=== PATIENT | female | born 1965 | race Caucasian/White ===

== ENCOUNTER 2024-02-23 13:45 | Outpatient (AMB) | payer BC, SELFPAY ==
--- NOTE | 2024-02-23 13:52 | PD.GSCLVISIT ---
Vital Signs - [facility] 02/23/24 13:54 Height 1.63 m Height Method Stated Weight 104.411 kg Weight Measurement Method Standing Scale BMI 39.4 BP 119/80 Blood Pressure Source Automatic Cuff Blood Pressure Location Right Upper Arm Position Sitting Respiration 19 Pulse 62 Pulse Source Monitor Temp 97.3 F Temp Source Temporal Artery Scan Pulse Oximetry (%) 96 Oxygen Delivery Method Room Air Med/Allergies Allergies & Medications Allergies Sulfa (Sulfonamide Antibiotics) Allergy (Verified 02/23/24 13:54) Medication Reconciliation No Known Home Medications 02/23/24 [History Confirmed 02/23/24] MA Intake Visit Data Collection New Patient or Established: New Patient (never been to [facility]) Seen by Clinical Staff ONLY (RN/MA): No Reason for Visit:: HERNIA Pain Present Currently: No Supervisor [employer] Required: No PCP or OBGYN visit in last 3 months: Yes Hx Now: No Do You Feel Safe at Home: Yes Authorities Contacted: N/A Smoking Status Smoking Status: Never smoker Immunization / Flu Flu Vaccine in the Last 12 Months: Yes Flu Vaccine Exclusion Criteria: Already Received Past Medical History Social History SMOKING STATUS: Smoking status: Never smoker HPI HPI Narrative 59 y/o F presenting with noticeable hernia for the past 6 months. Per patient she was seen in [facility] ER in [place], and told to follow up for her the current hernia. Pt states that she had previously had hernia repair in 2009, which was removed due to emergency surgery of partial Colon resection and colostomy placement in 2019, when she was taken to the ED for Crohns associated sepsis. She currently has 8/10 cramping pain near the hernia/ colostomy, reports nausea without vomiting and worsening hernia with coughing. Per patient she also has Crohn associated hemorrhoids and fistula with bilateral Lower quadrant abdominal pain as well as intermittent severe perianal pain. Her last Colonoscopy was 2 years ago and pt was informed she had polyps. Pt is currently taking remicade for a Crohn's flare as well as azathioprine and mesalamine PMH: GERD, Crohn Disease, Diverticulitis, kidney stones, thyroid PSH: Hernia repair, Partial Colectomy, Colostomy 2019, Louis Fundoplication, All: NKDA Meds: Remicade, Levoroxine, Prednisone as needed, FHX: Father: Colon CA, Mother: Thyroid, HTN, Crohn Disease: twin sister, son. 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 ROS Review of Systems Systems Reviewed: All systems reviewed, normal except as documented Constitutional Constitutional: Denies chills, Reports fatigue and Denies headache(s) Eyes Eyes: Denies change in vision and Reports eye discharge ENT Ears, Nose, Mouth, and Throat: Denies dysphagia, Denies headache(s) and Denies vertigo Cardiovascular Cardiovascular: Denies chest pain, Denies chest pain with activity, Denies dyspnea on exertion, Denies irregular heart rhythm and Denies pedal edema Respiratory Respiratory: Denies chest congestion, Denies cough and Denies dyspnea on exertion Gastrointestinal Gastrointestinal: Reports abdominal pain, Reports cramping, Denies dysphagia, Reports early satiety and Denies hematochezia Neurologic Neurologic: Denies headache(s) and Denies vertigo Endocrine Endocrine: Reports fatigue Objective/Exam General General Appearance: alert, cooperative and well groomed Resp Respiratory exam: Absent respiratory distress Abdominal Abdominal exam: Present soft, incision (midline incision with hernia defect at superior aspect) and other (colostomy pink with scattered pseudopolyps, no bleeding) Rectal Rectal exam: Present hemorrhoids (external hemorrhoid. pt declined JOHN) Assessment & Plan Diagnosis / Problem List (1) Crohn's disease: Status: Acute Assessment & Plan: 59F with Crohn's disease s/p partial colectomy with colostomy done in [address] Ruiz, presenting with incisional hernia and perianal pain. I explained to pt that hernia repair is ideally undertaken when BMI is <35, but also because she is hoping to have colostomy reversal it could potentially be performed simultaneously. Pt understands colostomy cannot be reversed until her Crohn's is in remission but would like to follow up with Dr Ruiz if possible. For her perianal pain she likely has a fissure related to her Crohn's; she was unable to tolerate anoscopy but I will prescribe compound cream for symptom management. All questions were answered and pt was agreeable to this plan Office Procedures GNS Level of Care Nursing/Assessment Patient Status: Initial/New Patient Nursing Assessment/Reassesment: Medication Reconciliation, Update PMH in EMR and Vital Signs Coordination of Care: Complex Care and Chronic Disease 1-5, Consent,records obtained, informed consent, 1 Ins Authorization and Staff clarify orders New Patient Charge New Patient Point Assignment: [id number] New Patient Point Charge: BRINELL TESTER Level 3 ([id number]) Patient Portal Questionaires Social History Tobacco History Smoking Status: Never smoker Domestic Abuse History Do You Feel Safe at Home: Yes Review of Systems Report any current symptoms Only answer those that you have currently: General Complaints chills: No fatigue: Yes headache(s): No Eyes change in vision: No eye discharge: Yes Ear, Nose, & Throat difficulty swallowing: No dizzyness: No Heart & Circulation chest pain: No chest pain with activity: No shortness of breath with activity: No irregular heart rhythm: No foot swelling: No Breathing & Lungs chest congestion: No cough: No Digestive System abdominal pain: Yes cramping: Yes feeling full early: Yes bright, red blood in stools: No Past Medical History Past Medical History Have you ever been diagnosed with any of the following:
[2024-02-23 13:54] VITALS: BP 119/80; PULSE 62; RESP 19; TEMP 36.3; O2SAT 96; BMI 39.4
== END 2024-02-23 15:51 | disposition home or self-care (01) ==
PROVIDERS: PCP Family Medicine; Referring Provider Family Medicine; Supervising Provider Surgery; Visit Provider Surgery
DX: K50.90 Crohn's disease, unspecified, without complications (principal); K64.4 Residual hemorrhoidal skin tags
CPT/HCPCS: 99203; G0463

== ENCOUNTER → 2024-04-20 | Outpatient (CLI) | payer BC, SELFPAY ==
--- NOTE | 2024-04-20 08:55 | XR_ITS ---
Examination: Abdomen AP single view Technique: AP portable supine abdomen, single view Exam date and time: April 20, 2024 0906 hrs. Indications: Constipation beginning 6 days ago, Crohn's disease diagnosis Findings: Large amounts of stool in the colon Left colostomy IVC filter Surgical clips upper right and left abdomen Mild small bowel ileus Impression: Large amounts of stool in the right and transverse colon
== END | disposition home or self-care (01) ==
LOC: CDIM 08:45
PROVIDERS: Referring Provider Specialist; Visit Provider Specialist
DX: K59.00 Constipation, unspecified (principal)
CPT/HCPCS: 74018

== ENCOUNTER → 2024-05-31 | Outpatient (CLI) | payer BC, SELFPAY | END | disposition home or self-care (01) | PROVIDERS: PCP Family Medicine; Referring Provider Specialist; Visit Provider Specialist | DX: K50.00 Crohn's disease of small intestine without complications (principal) ==

== ENCOUNTER → 2024-07-06 | Outpatient (CLI) | payer BC, SELFPAY ==
[2024-07-06 08:30] LABS: Misc Send Out* See Sep Rpt
== END | disposition home or self-care (01) ==
LOC: COPL 08:09
PROVIDERS: PCP Family Medicine; Referring Provider Specialist; Visit Provider Specialist
DX: K50.00 Crohn's disease of small intestine without complications (principal)
CPT/HCPCS: 80230; 83520

== ENCOUNTER 2024-09-03 15:38 | Inpatient (IN) | payer BC, SELFPAY ==
[2024-09-03 15:40] VITALS: BMI 37.4
[2024-09-03 15:53] VITALS: BP 125/84; PULSE 70; RESP 18; TEMP 36.4; O2SAT 98; BMI 38.6
--- NOTE | 2024-09-03 16:09 | XR_ITS ---
Examination: CT abdomen and pelvis without contrast. Coronal 3-D reconstructions. Sagittal 2-D reconstructions. Date and time of exam:September 03, 2024 1631 hours INDICATIONS: Crohn's disease diagnosis with abdominal pain and diarrhea beginning one week ago CTDI: vol (mGy): 14 DLP: (mGycm): 821 Technique: Axial images of the abdomen have been obtained, 3 mm slice thickness Intravenous contrast material has not been administered. Low dose protocols were performed. One or more of the following dose reduction techniques were used; automated exposure control, adjustment of the mA and/or KV according to patient size, use of iterative reconstruction technique. Findings: No focal liver lesion, absent gallbladder Upper abdominal wall 5 cm hernia defect containing transverse colon but no incarcerated bowel Mucosal thickening in the stomach No pancreatic mass Left abdominal wall anterior hernia defect 5.4 cm containing small bowel but no incarcerated bowel Left ostomy defect with herniated small bowel at the stomal region, axial image 1:15 the hernia defect measuring 5 cm No incarcerated bowel or bowel obstruction Rectosigmoid shows wall thickening and hyperemia as well as thickening of the rectal wall Contracted urinary bladder Moderate osteopenia IMPRESSION: Gastritis pattern. Multiple hernia defects as above but no incarcerated bowel or bowel obstruction Significant colitis pattern involving rectosigmoid colon as well as proctitis pattern
--- NOTE | 2024-09-03 16:10 | PD.EDRME ---
Rapid Medical Screening Exam RME Arrival date/time: 09/03/24 15:38 59-year-old female presents to the emergency department today for complaints of Crohn's flareup Chief Complaint: Nausea/Vomiting/Diarrhea Time Seen by Provider: 09/03/24 15:54 Vital signs: Vital Signs Temperature 97.5 F 09/03/24 15:53 Pulse Rate 70 09/03/24 15:53 Respiratory Rate 18 09/03/24 15:53 Blood Pressure 125/84 09/03/24 15:53 Pulse Oximetry (%) 98 09/03/24 15:53 Oxygen Delivery Method Room Air 09/03/24 15:53
[2024-09-03 16:31] LABS: Collection Type, Urine Clean Catch; RBC,Urine 0 /hpf (0-3); Squamous Epithelial Cell,Urine 0 /hpf (0-5); WBC,Urine 0 /hpf (0-5)
[2024-09-03 16:33] LABS: Basophils # (Auto) 0.1 Thou/mm3 (0.0-0.2); Basophils % (Auto) 0 % (0-2.5); Eosinophils % (Auto) 0 % (0-10); Hematocrit 38.1 % (36.0-46.0); Hemoglobin 13.2 g/dL (12.0-16.0); Immature Granulocytes % (Auto) 1 % (0-0); Immature Granulocytes Auto 0.06 Thou/mm3 (0.00-0.00); Lymphocytes # (Auto) 3.2 Thou/mm3 (1.0-4.8); Lymphocytes % (Auto) 26 % (10-50); Mean Corpuscular HGB Conc 34.6 g/dl (31.0-37.0); Mean Corpuscular Hemoglobin 31.7 pg (25.0-35.0); Mean Corpuscular Volume 92 fL (80-100); Monocytes # (Auto) 1.1 Thou/mm3 (0.0-0.8); Monocytes % (Auto) 9 % (0-12); Neutrophils # (Auto) 8.1 Thou/mm3 (1.8-7.7); Neutrophils % (Auto) 64 % (37-80); Nucleated Red Blood Cell % 0 /100 WBC (0); Platelet Count 339 Thou/mm3 (140-440); Red Blood Count 4.16 Miln/mm3 (4.00-5.20); White Blood Count 12.6 Thou/mm3 (3.6-11.0)
[2024-09-03 16:52] LABS: Sed Rate (ESR) 10 mm/hr (0-30)
[2024-09-03 17:03] LABS: Alanine Aminotransferase 14 U/L (10-49); Albumin, Serum 4.1 gm/dL (3.4-4.8); Albumin/Globulin Ratio 1.5 (1.2-2.2); Alkaline Phosphatase 113 U/L (46-116); Anion Gap 9 (7-16); Aspartate Amino Transferase 11 U/L (0-34); BUN/Creatinine Ratio 31 Ratio (12-20); Bilirubin,Total 0.4 mg/dL (0.3-1.2); Blood Urea Nitrogen 28 mg/dL (9-23); C-Reactive Protein 3.3 mg/dL (0.0-0.9); Calcium 8.7 mg/dL (8.3-10.6); Calcium (Corrected) 8.7 mg/dL (8.5-10.1); Carbon Dioxide 28.2 mMol/L (20.0-31.0); Chloride 105 mMol/L (98-107); Creatinine (Component) 0.9 mg/dL (0.6-1.3); Estimated Creatinine Clearance 77.3 mL/min (>60); Globulin 2.8 gm/dL (2.3-3.5); Glucose 90 mg/dL (74-106); Lipase 38 U/L (12-53); Osmolality,Calculated 288 (275-295); Potassium 4.1 mMol/L (3.4-5.1); Sodium 142 mMol/L (136-145); Total Protein 6.9 gm/dL (5.7-8.2); eGFR > 60 See Note
[2024-09-03 17:25] LABS: Bilirubin,Urine Negative (Negative); Blood,Urine 2+ (Negative); Clarity,Urine Clear (Clear/Hazy); Color,Urine Yellow (Lt Yel-Yel); Culture Indicated,Urine Not Indicated; Glucose, Urine Negative (Negative); Ketones,Urine Negative (Negative); Leukocyte Esterase,Urine Negative (Negative); Nitrite,Urine Negative (Negative); PH,Urine 5.5 (5.0-7.0); Protein,Urine Negative (Neg - Trace); Urobilinogen,Urine Negative mg/dL (0.0-1.0)
[2024-09-03 17:26] LABS: Bacteria,Urine Rare
[2024-09-03 18:39] VITALS: BP 141/90; PULSE 77; O2SAT 99
--- NOTE | 2024-09-03 19:13 | PD.EDNV ---
Nausea/Vomit./Diarrhea-RME/HPI General Chief complaint: Nausea/Vomiting/Diarrhea Stated complaint: CROHN'S FLARE UP WITH JOINT PAIN Time Seen by Provider: 09/03/24 15:54 Arrival date/time: 09/03/24 15:38 RME / HPI RME / HPI Narrative: 59-year-old female presents to the emergency department today for complaints of Crohn's flareup . Patient is getting Remicade every 8 weeks, she noticed that after 6 weeks she started to develop flareup of her Crohn's disease. Manifested as worsening multiple joint pain, worse with ambulation and abdominal pain. Supposed to take Remicade today however because of insurance problem was able to do it. Went to Dr. Worthington's clinic and was sent here for further management. Denies any blood in the stool. Related Data Home Medications ?Medication ?Instructions ?Recorded ?Confirmed No Known Home Medications 02/23/24 02/23/24 Allergies Allergy/AdvReac Type Severity Reaction Status Date / Time codeine Allergy Severe Hives Verified 09/03/24 15:47 latex Allergy Severe Hives Verified 09/03/24 15:47 morphine Allergy Severe Hives Verified 09/03/24 15:47 Sulfa (Sulfonamide Allergy Verified 09/03/24 15:47 Antibiotics) Review of Systems Review of Systems Narrative Review of Systems: Review of system reviewed and within normal limits except mentioned in HPI ED Exam Narrative Physical exam: VITAL SIGNS: Reviewed. GENERAL APPEARANCE: Alert and interactive, follows commands, no acute distress, HEAD AND FACE: Non-traumatic. ENT: PERRL, pink conjunctivitis, eyelid no trauma, Mucous membrane moist. NECK: Supple, nontender, no nuchal rigidity. CHEST: No tenderness, no crepitus, no paradoxical movement, no retractions. LUNGS: Clear, well ventilated, symmetric, no rales, no wheezing, no ronchi, no stridor, good breath sounds bilaterally. HEART: Regular rate, regular rhythm, no murmur, no gallops. ABDOMEN: Soft, positive bowel sounds, nondistended, no guarding, nontender, no rebound, no masses, colostomy intact, with stool noted, diffuse tenderness RECTAL: Deferred. GENITAL: Deferred. NEUROLOGICAL: Gross motor function intact sensory function intact, Appropriate for age. MUSCULOSKELETAL: low back nontender, full range of motion. EXTREMITIES: Multiple joint tenderness, no redness no deformity,, full range of motion. SKIN: Color pink, dry, no rash, no lacerations, no abrasions, no contusions. LYMPHATICS: Deferred. Course Quality Measures none Orders Category Date Time Status COVID-19 Screening Questionnaire NOW Care 09/03/24 19:29 Active Decision to Admit X1 Care 09/03/24 19:29 Active NPO NOW Care 09/03/24 19:11 Active Consult to Gastroenterology Stat Cons 09/03/24 19:03 Ordered Diet NPO (NOW) Diet 09/03/24 19:[address] abdomen pelvis wo con Stat Exams 09/03/24 16:09 Completed CBC Stat Lab 09/03/24 16:24 Completed CRP [C-Reactive Protein] Stat Lab 09/03/24 16:24 Completed Calprotectin, Stool* Routine Lab 09/03/24 Ordered Clostridium Difficile PCR Routine Lab 09/03/24 19:40 Ordered Comprehensive Metabolic Panel Stat Lab 09/03/24 16:24 Completed ESR [Sed Rate (ESR)] Stat Lab 09/03/24 16:24 Completed Giardia Antigen, EIA, Stool* Routine Lab 09/03/24 19:40 Ordered Lipase Stat Lab 09/03/24 16:24 Completed Stool Culture Routine Lab 09/03/24 19:40 Ordered Stool for WBCs Routine Lab 09/03/24 19:40 Ordered UA, C/S IF [Urinalysis, C/S if Indicated] Stat Lab 09/03/24 16:15 Completed MethylPREDNISolone. [SoluMEDROL Inj] Med 09/03/24 21:00 Active 40 mg IVP BID Vital Signs Vital signs: Vital Signs Temperature 97.5 F 09/03/24 15:53 Pulse Rate 70 09/03/24 15:53 Respiratory Rate 18 09/03/24 15:53 Blood Pressure 125/84 09/03/24 15:53 Pulse Oximetry (%) 98 09/03/24 15:53 Oxygen Delivery Method Room Air 09/03/24 15:53 Nausea/Vomiting/Diarrhea MDM Narrative MDM Narrative:: 59-year-old female presents to the emergency department today for complaints of Crohn's flareup . Patient is getting Remicade every 8 weeks, she noticed that after 6 weeks she started to develop flareup of her Crohn's disease. Manifested as worsening multiple joint pain, worse with ambulation and abdominal pain. Supposed to take Remicade today however because of insurance problem was able to do it. Went to Dr. Worthington's clinic and was sent here for further management. Denies any blood in the stool. CBC showed leukocytosis of 12.6 C reactive protein of 3.[address] scan of the abdomen and pelvis showed Gastritis pattern. Multiple hernia defects as above but no incarcerated bowel or bowel obstruction Significant colitis pattern involving rectosigmoid colon as well as proctitis pattern Spoke with Dr. Worthington, who advised me to asked hospitalist to admit the patient for further management. Patient is having flareup of Crohn's disease, with inability to get the Remicade\IV Patient data External records reviewed:: None Clinical information provided by:: patient Social determinants that could affect healthcare access:: none Patient has the following chronic illnesses:: Crohn's disease How is presenting disease/condition affected by chronic disease/condition?: exacerbated by Evaluation data The following diagnostics were reviewed and interpreted by me:: lab results and radiology exam(s) Lab and/or radiology exams considered but not ordered:: And Interpretation Summary: See results MDM Medications / Prescriptions Medications / Prescriptions considered but not ordered:: None Medication administrations:: Medication Administration History Methylprednisolone Sodium Succinate (Methylprednisolone Sod Succ 40 Mg Vial) 40 mg IVP BID ALON Stop: 09/10/24 20:59 Solu-Medrol IV Consultations Consultation(s) initiated? (list below): Yes Consultation #1 (Physician, Specialty, Details): Dr. Worthington, GI specialist on-call. Thank you Diagnosis Nausea Differential Diagnosis: other (Crohn's flareup, polyarthralgia) Most likely diagnosis given after review of the tests above:: Crohn's disease flareup, polyarthralgia Admission Indicated Admission indicated?: indicated Admission Request Was there a request for admission?: Yes Admission Attestation Admission request attestation: Discussed case with [Dr. Stoddard] from Hospitalist service regarding admission. Discussed patients ED course, exam findings, labs, and radiology results. The Hospitalist [agrees,] to accept the patient for admission. Disposition Plan Disposition Plan: Admit Discharge Plan Plan Patient Disposition: Admit Acute Care w/in Hospital Prescriptions/Referrals Prescriptions/Med Rec: No Action No Known Home Medications Referrals: Jorge Mccormick [Primary Care Provider] - In 1 week Problem List Clinical Impression: Crohn's colitis, Polyarthralgia Patient/Caregiver Discharge Instructions Print Language: Jordanian Stand Alone Forms: Billie Award Info., Patient Portal Info Letter
--- NOTE | 2024-09-03 19:40 | PD.IMCONS ---
HPI Data of Consult Primary Care Provider: Jorge Mccormick Consult Narrative Reason for consult: Worsening abdominal arthralgias profuse diarrhea History of present illness: 59 years old female who has a history of hypothyroidism has longstanding history of inflammatory bowel disease at least 15 years Who has recently undergone colostomy because of the acute exacerbation and perforation Is in the process of getting evaluated by Dr. Mckinley Gresham at [facility] Chief of colorectal surgery for putting by the colostomy together She has been having worsening chest pain arthralgias myalgias particularly left arm pain bilateral knee pain and had diarrhea and severe abdominal pain which is getting worse She was brought into the emergency room at my request CT scan of the abdomen pelvis without contrast showed diffuse colitis pattern involving rectum as well as sigmoid colon Patient was subsequently admitted She has also missed a dose of her Remicade infusion which is at 5 mg/kg body weight No vomiting No fever No chills or rigors cc:: cc: Review of Systems Review of Systems Systems Reviewed: All systems reviewed, normal except as documented Past Medical History Surgical History OTHER SURGICAL HX: As in the history of present illness Meds Home Medications and Allergies Home Medications ?Medication ?Instructions ?Recorded ?Confirmed ?Type albuterol sulfate 90 mcg/actuation inhalation 09/04/24 History aerosol inhaler levothyroxine 100 mcg tablet mcg 09/04/24 History pantoprazole 40 mg tablet,delayed mg PO 09/04/24 History release Allergies Allergy/AdvReac Type Severity Reaction Status Date / Time codeine Allergy Severe Hives Verified 09/03/24 15:47 latex Allergy Severe Hives Verified 09/03/24 15:47 morphine Allergy Severe Hives Verified 09/03/24 15:47 Sulfa (Sulfonamide Allergy Verified 09/03/24 15:47 Antibiotics) Exam Vital Signs Temp Pulse Resp BP Pulse Ox O2 Del Method 97.5 F 77 18 141/90 H 99 Room Air 09/03/24 15:53 09/03/24 18:39 09/03/24 15:53 09/03/24 18:39 09/03/24 18:39 09/03/24 15:53 Constitutional Comments: Patient crying and in considerable amount of discomfort and frustrated Routine Respiratory Exam Comments: Normal to auscultation Routine Abdominal Exam Comments: Generalized tenderness with abdominal distention and positive bowel sounds Functioning colostomy surrounded by ventral hernias Results Labs 09/04/24 04:49 09/04/24 04:49 Labs: Short CBC 09/03/24 Range/Units 16:24 WBC 12.6 H (3.6-11.0) Thou/mm3 Hgb 13.2 (12.0-16.0) g/dL Hct 38.1 (36.0-46.0) % Plt Count 339 (140-440) Thou/mm3 BMP 09/03/24 16:24 Sodium 142 Potassium 4.1 Chloride 105 Carbon Dioxide 28.2 BUN 28 H Creatinine 0.9 Glucose 90 Calcium 8.7 Liver Function 09/03/24 Range/Units 16:24 Total Bilirubin 0.4 (0.3-1.2) mg/dL AST 11 (0-34) U/L ALT 14 (10-49) U/L Alkaline Phosphatase 113 (46-116) U/L Albumin 4.1 (3.4-4.8) gm/dL Urine 09/03/24 Range/Units 16:15 Urine Color Yellow (Lt Yel-Yel) Urine Clarity Clear (Clear/Hazy) Urine pH 5.5 (5.0-7.0) Ur Specific [place] 1.030 (1.001-1.035) Urine Protein Negative (Neg - Trace) Urine Glucose (UA) Negative (Negative) Assessment and Plan Additional Assessment & Plan Additional Plan: Acute exacerbation of the underlying inflammatory bowel disease Complete stool panel to rule out any other infectious causes including C. difficile IV Solu-Medrol 40 mg IV every 12 Inflectra 5 mg/kg body weight she weighs 228 pounds will calculate the dose and she should receive the dose prior to discharge Clear liquid diet Will follow the patient Other medical problems include Status post colostomy Hypothyroidism Multiple ventral hernias Thank you once again for the opportunity to participate in the care of this patient
--- NOTE | 2024-09-03 20:54 | EKG_ITS ---
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
[2024-09-03 21:11] VITALS: BP 139/78; PULSE 86; RESP 19; TEMP 36.6; O2SAT 98
--- NOTE | 2024-09-03 21:39 | PD.RESHP ---
Documentation for date of: 09/03/24 HPI History of Present Illness Chief complaint: Abdominal pain History of present illness: Ms. Jay is a 59-year-old female with past medical history of Crohn's disease, diagnosed in 2007 status post colostomy, hypothyroidism, GERD and asthma who presented to [facility] emergency department on 09/03/2024 with a chief complaint of abdominal pain. Patient reported that she has had worsening abdominal pain for the last 6 weeks that has eventually progressed and gotten worse, reports also multiple joint pains, complains of pain in the left arm, bilateral knees. Patient also describes some chest heaviness with pain radiating to the left arm. Patient follows management technician Dr. Worthington outpatient who sent the patient to the hospital for IBD flare up, patient is on IV Remicade which she was unable to take today due to insurance issues. Patient denies any blood in stool and otherwise has no current complaints. Patient denies any palpitations, nausea, vomiting, diarrhea, dizziness, syncope or presyncope. ED Course: ED Vitals: On presentation blood pressure 125/84, heart rate 70, respiratory 18, temp 97.5, O2 sat 98 on room air ED Labs: ED labs significant for WBC 12.6, BUN 28, CRP 3.3 ED Imaging:CT abdomen pelvis shows gastritis pattern, multiple hernia defects, significant colitis pattern involving rectosigmoid colon as well as proctitis pattern ED Treatment:Patient was given methylprednisolone 40 mg IV x 1 and gastroenterology was consulted in the emergency department Review of Systems Review of Systems Narrative Review of Systems: ROS: -CONSTITUTIONAL: Denies weight loss, fever and chills. -HEENT: Denies changes in vision and hearing. -RESPIRATORY: Denies SOB and cough. -CV: Denies palpitations and Chest Pain. -GI: Positive for abdominal pain, denies nausea, vomiting,constipation and diarrhea. -: Denies dysuria and urinary frequency. -MSK: Denies myalgia and positive for joint pain. -SKIN: Denies rash and pruritus. -NEUROLOGICAL: Denies headache and syncope. -PSYCHIATRIC: Denies recent changes in mood. Denies anxiety and depression. Past Medical History Past Medical History Comments PMH COMMENT: PMH: Positive for Crohn's disease, diagnosed in 2007 status post colostomy, hypothyroidism, GERD and asthma PSHx: Colostomy 2020, right shoulder surgery, knee surgery, hysterectomy Allergies: Codeine, latex, morphine, sulfa antibiotics Social history: -Smoking: Denies -Alcohol Use: Denies -Illicit Drug Use: Denies Family History: Positive for Crohn's disease in twin sister Exam Vital Signs Temp Pulse Resp BP Pulse Ox O2 Del Method 98 F 86 19 139/78 H 98 Room Air 09/03/24 21:11 09/03/24 21:11 09/03/24 21:11 09/03/24 21:11 09/03/24 21:11 09/03/24 21:11 Narrative Exam Physical Exam General: Awake and in no acute distress. Conversational and non-toxic appearing. HEENT: Normocephalic, atraumatic, mucous membranes moist. Heart: Regular rate and rhythm, no murmurs. Lungs: Clear to auscultation with no wheezing or crackles. Abdomen: Soft, nondistended, diffuse tenderness, positive bowel sounds. Colostomy bag noted. Neurologic: Alert and oriented x3, no gross neurological deficit, and patient able to move all 4 extremities. Extremities: No edema. Skin: No rash or ecchymoses. Results: Labs 09/04/24 04:49 09/03/24 16:24 Labs: Short CBC 09/03/24 Range/Units 16:24 WBC 12.6 H (3.6-11.0) Thou/mm3 Hgb 13.2 (12.0-16.0) g/dL Hct 38.1 (36.0-46.0) % Plt Count 339 (140-440) Thou/mm3 BMP 09/03/24 16:24 Sodium 142 Potassium 4.1 Chloride 105 Carbon Dioxide 28.2 BUN 28 H Creatinine 0.9 Glucose 90 Calcium 8.7 Liver Function 09/03/24 Range/Units 16:24 Total Bilirubin 0.4 (0.3-1.2) mg/dL AST 11 (0-34) U/L ALT 14 (10-49) U/L Alkaline Phosphatase 113 (46-116) U/L Albumin 4.1 (3.4-4.8) gm/dL Urine 09/03/24 Range/Units 16:15 Urine Color Yellow (Lt Yel-Yel) Urine Clarity Clear (Clear/Hazy) Urine pH 5.5 (5.0-7.0) Ur Specific [place] 1.030 (1.001-1.035) Urine Protein Negative (Neg - Trace) Urine Glucose (UA) Negative (Negative) Quality Measures Quality Measures none Medications Home Medications and Allergies Home Medications ?Medication ?Instructions ?Recorded ?Confirmed ?Type albuterol sulfate 90 mcg/actuation inhalation 09/04/24 History aerosol inhaler levothyroxine 100 mcg tablet mcg 09/04/24 History pantoprazole 40 mg tablet,delayed mg PO 09/04/24 History release Allergies Allergy/AdvReac Type Severity Reaction Status Date / Time codeine Allergy Severe Hives Verified 09/03/24 15:47 latex Allergy Severe Hives Verified 09/03/24 15:47 morphine Allergy Severe Hives Verified 09/03/24 15:47 Sulfa (Sulfonamide Allergy Verified 09/03/24 15:47 Antibiotics) Visit Medications Albuterol/Ipratropium (Albuterol/Ipratropium (Duoneb) Rt Aniya 3 Ml Nebu) 3 ml INH Q6HRRT PRN PRN Reason: SOB/Wheeze Stop: 10/04/24 00:59 Methylprednisolone Sodium Succinate (Methylprednisolone Sod Succ 40 Mg Vial) 40 mg IVP BID [facility] Stop: 09/10/24 20:59 Ondansetron HCl (Ondansetron Inj 2 Mg/Ml Inj 2 Ml) 4 mg IV Q6H PRN; Protocol PRN Reason: NAUSEA OR VOMITING Stop: 10/03/24 20:53 Pantoprazole Sodium (Pantoprazole Inj 40 Mg Vial) 40 mg IVP QDAY ALON Stop: 10/04/24 08:59 Assessment & Plan Plan Assessment and plan: Summary: Ms. Jay is a 59-year-old female with past medical history of Crohn's disease, diagnosed in 2007 status post colostomy, hypothyroidism, GERD and asthma who presented to [facility]] emergency department on 09/03/2024 with a chief complaint of abdominal pain. Patient admitted to hospital for Crohn disease flare. #Crohn's disease flare #Status post colostomy #Inflammatory bowel disease Patient has worsening abdominal pain, for the last 6 weeks, unable to obtain Remicade outpatient due to insurance issues. Patient was evaluated by management technician with clinic who sent to hospital for further evaluation. CT abdomen pelvis shows gastritis pattern, multiple hernia defects, significant colitis pattern involving rectosigmoid colon as well as proctitis pattern. Patient also complains of joint pain. CRP 3.3, ESR 10. Crohn's disease activity index 272 points Plan - Started on methylprednisolone 40 mg IV twice daily per GI recommendations - Consider infusing infliximab if patient continues to have symptoms - Follow fecal calprotectin, C. difficile, Giardia, stool culture and stool WBC - Avoid NSAIDs/opiates/antidiarrheals - Colostomy care - Keep n.p.o., GI might consider colonoscopy - GI consulted appreciate recommendations #GERD Patient on Protonix 40 mg daily at home CT scan does show gastritis Plan : - Protonix 40 IV daily #Hypothyroidism Resume home dose levothyroxine #Asthma DuoNeb as needed DVT prophylaxis: Heparin every 12 hours GI prophylaxis: IV pantoprazole Diet: N.p.o. Lines: Peripheral IV Code status: Full code Case discussed with Attending . Madison Stoddard PGY1 Disclaimer: This note was dictated by speech recognition. Minor errors in loss prevention auditor may be present due to voice recognition software. Attending Provider Attestation/Addendum I have examined the patient, reviewed labs and imaging findings, discussed the case with the resident(s), and reviewed entered orders. I agree with the plan of care as outlined in this note, with these additional summaries/recommendations: 59-year-old female with past medical history of IBD status post colostomy presented to the ED with chief complaint worsening abdominal pain. Patient has had difficulty getting Remicade infusions COVID on outpatient basis and difficulty with controlling symptoms. Patient found to have significant colitis pattern on CT abdomen pelvis and will be admitted for further management of acute IBD flare. Sony Cabrera MD
[2024-09-03 22:16] LABS: Troponin I < 0.002 ng/mL (0.0-0.045)
[2024-09-04] VITALS (9 sets, daily range): BP systolic 109–150; BP diastolic 71–79; PULSE 56–71; RESP 18–98; TEMP 36.1–36.8; O2SAT 94–98; BMI 38.0
--- NOTE | 2024-09-04 00:34 | PC.NURSE ---
Report called to floor nurse, Omer RN
--- NOTE | 2024-09-04 00:38 | PC.NURSE ---
Access chart to assist primary Nurse.
[2024-09-04] MEDS: HEPARIN SOD INJ 5000 UNIT/ML VIAL SC ×2 (06:23→20:35)
[2024-09-04 06:27] LABS: Basophils % (Auto) 0 % (0-2.5); Eosinophils % (Auto) 0 % (0-10); Hematocrit 39.7 % (36.0-46.0); Hemoglobin 13.2 g/dL (12.0-16.0); Immature Granulocytes % (Auto) 0 % (0-0); Immature Granulocytes Auto 0.05 Thou/mm3 (0.00-0.00); Lymphocytes # (Auto) 1.1 Thou/mm3 (1.0-4.8); Lymphocytes % (Auto) 10 % (10-50); Mean Corpuscular HGB Conc 33.2 g/dl (31.0-37.0); Mean Corpuscular Hemoglobin 31.6 pg (25.0-35.0); Mean Corpuscular Volume 95 fL (80-100); Monocytes # (Auto) 0.2 Thou/mm3 (0.0-0.8); Monocytes % (Auto) 2 % (0-12); Neutrophils # (Auto) 9.9 Thou/mm3 (1.8-7.7); Neutrophils % (Auto) 88 % (37-80); Nucleated Red Blood Cell % 0 /100 WBC (0); Platelet Count 303 Thou/mm3 (140-440); RDW Standard Deviation 45.9 fL (36.4-46.3); Red Blood Count 4.18 Miln/mm3 (4.00-5.20); White Blood Count 11.3 Thou/mm3 (3.6-11.0)
[2024-09-04 06:52] LABS: Prothrombin Time 11.2 Seconds (9.0-12.2)
[2024-09-04 07:07] LABS: Alanine Aminotransferase 12 U/L (10-49); Albumin, Serum 4.1 gm/dL (3.4-4.8); Albumin/Globulin Ratio 1.5 (1.2-2.2); Alkaline Phosphatase 108 U/L (46-116); Anion Gap 10 (7-16); Aspartate Amino Transferase 11 U/L (0-34); BUN/Creatinine Ratio 29 Ratio (12-20); Bilirubin,Total 0.5 mg/dL (0.3-1.2); Blood Urea Nitrogen 23 mg/dL (9-23); Calcium 8.7 mg/dL (8.3-10.6); Calcium (Corrected) 8.7 mg/dL (8.5-10.1); Carbon Dioxide 24.9 mMol/L (20.0-31.0); Chloride 105 mMol/L (98-107); Cholesterol 173 mg/dL (132-200); Creatinine (Component) 0.8 mg/dL (0.6-1.3); Estimated Creatinine Clearance 89.3 mL/min (>60); Globulin 2.7 gm/dL (2.3-3.5); Glucose 153 mg/dL (74-106); HDL Cholesterol 43 mg/dL (40-60); LDL Cholesterol,Calculated 110 mg/dL (0-130); Osmolality,Calculated 286 (275-295); Phosphorous 3.1 mg/dL (2.4-5.1); Potassium 4.4 mMol/L (3.4-5.1); Sodium 140 mMol/L (136-145); Thyroid Stimulating Hormone 1.46 uIU/mL (0.55-4.78); Total Protein 6.8 gm/dL (5.7-8.2); Triglycerides 99 mg/dL (30-150); eGFR > 60 See Note
[2024-09-04] MEDS: PANTOPRAZOLE INJ 40 MG VIAL IVP (08:57)
--- NOTE | 2024-09-04 09:57 | ESPR_ITS ---
<Statement entered by Shamika Montenegro MD - 09/05/24 17:46> Patient was seen and examined at bedside, agree on the assessment and plan on this note. - Patient's plan and care discussed with my attending, Dr. Blake Montenegro MD Internal Medicine PGY-2 Documentation for date of: 09/04/24 Subjective Subjective Interval history: Patient was seen and examined at bedside this AM. No acute exents overnight. Patient NPO, adequate urine output and mentation is at baseline. Patient endorses improvement of generalized symmetrical joint pain. Started on normal saline 1 L IVF at 100 cc/h. Day 2 methylprednisone 40 Mg IV twice daily. Travel Physical Therapist, Dr. Worthington consulted and closely following the case. Appreciate recommendations Exam Vital Signs Temp Pulse Resp BP Pulse Ox O2 Del Method 97.6 F 59 L 20 111/75 94 L Room Air 09/04/24 07:50 09/04/24 07:50 09/04/24 07:50 09/04/24 07:50 09/04/24 07:50 09/04/24 07:50 Narrative Exam Constitutional Alert, oriented x 3 and comfortable HEENT Vision grossly intact. Patent nares. Trachea midline Respiratory Chest normal on inspection and clear auscultation bilaterally Cardiovascular S1 and S2 audible, RRR. No murmurs carotid bruit. No gross JVD. Abdominal Soft and mildly tender to palpation in lower quadrants. Healed midline surgical scar noted. Colostomy in left lower quadrant, bag attached, minimal output, no signs of stenosis or corrosion Genitourinary No bladder tenderness, no flank pain. Normal to palpation Musculoskeletal Extremities tone within normal limits. No LE edema. Neurological CN II - XII grossly intact. Extremity motor and sensation grossly intact. Skin Warm, dry and intact. No apparent lesions. Psychiatric Patient has good affect, is cooperative Objective Labs 09/05/24 04:54 09/05/24 04:54 Labs: Laboratory Results - last 24 hr 09/03/24 09/03/24 09/03/24 16:15 16:24 21:23 WBC 12.6 H RBC 4.16 Hgb 13.2 Hct 38.1 MCV 92 MCH 31.7 MCHC 34.6 RDW Std Deviation 44.0 Plt Count 339 Neut % (Auto) 64 Lymph % (Auto) 26 [place] % (Auto) 9 Eos % (Auto) 0 Baso % (Auto) 0 Neut # (Auto) 8.1 H Lymph # (Auto) 3.2 [place] # (Auto) 1.1 H Eos # (Auto) 0.0 Baso # (Auto) 0.1 Immature Gran # (Auto) 0.06 H Absolute Nucleated RBC 0.00 Immature Gran % 1 H Nucleated RBC % 0 ESR 10 PT INR Sodium 142 Potassium 4.1 Chloride 105 Carbon Dioxide 28.2 Anion Gap 9 BUN 28 H Creatinine 0.9 Estim Creat Clear Calc 77.3 eGFR > 60 BUN/Creatinine Ratio 31 H Glucose 90 Calculated Osmolality 288 Calcium 8.7 Corrected Calcium 8.7 Phosphorus Magnesium Total Bilirubin 0.4 AST 11 ALT 14 Alkaline Phosphatase 113 Troponin I < 0.002 C-Reactive Prot, Quant 3.3 H Total Protein 6.9 Albumin 4.1 Globulin 2.8 Albumin/Globulin Ratio 1.5 Triglycerides Cholesterol LDL Cholesterol, Calc HDL Cholesterol Cholesterol/HDL Ratio Lipase 38 TSH Ur Collection Type Clean Catch Urine Color Yellow Urine Clarity Clear Urine pH 5.5 Ur Specific [place] 1.030 Urine Protein Negative Urine Glucose (UA) Negative Urine Ketones Negative Urine Blood 2+ A Urine Nitrite Negative Urine Bilirubin Negative Urine Urobilinogen (Auto) Negative Ur Leukocyte Esterase Negative Urine RBC 0 Urine WBC 0 Ur Squamous Epith Cells 0 Urine Bacteria Rare Ur Culture Indicated? Not Indicated 09/04/24 04:49 WBC 11.3 H RBC 4.18 Hgb 13.2 Hct 39.7 MCV 95 MCH 31.6 MCHC 33.2 RDW Std Deviation 45.9 Plt Count 303 D Neut % (Auto) 88 H Lymph % (Auto) 10 [place] % (Auto) 2 Eos % (Auto) 0 Baso % (Auto) 0 Neut # (Auto) 9.9 H Lymph # (Auto) 1.1 [place] # (Auto) 0.2 Eos # (Auto) 0.0 Baso # (Auto) 0.0 Immature Gran # (Auto) 0.05 H Absolute Nucleated RBC 0.00 Immature Gran % 0 Nucleated RBC % 0 ESR PT 11.2 INR 1.0 Sodium 140 Potassium 4.4 Chloride 105 Carbon Dioxide 24.9 Anion Gap 10 BUN 23 Creatinine 0.8 Estim Creat Clear Calc 89.3 eGFR > 60 BUN/Creatinine Ratio 29 H Glucose 153 H D Calculated Osmolality 286 Calcium 8.7 Corrected Calcium 8.7 Phosphorus 3.1 Magnesium 2.0 Total Bilirubin 0.5 AST 11 ALT 12 Alkaline Phosphatase 108 Troponin I C-Reactive Prot, Quant Total Protein 6.8 Albumin 4.1 Globulin 2.7 Albumin/Globulin Ratio 1.5 Triglycerides 99 Cholesterol 173 LDL Cholesterol, Calc 110 HDL Cholesterol 43 Cholesterol/HDL Ratio 4.0 Lipase TSH 1.46 Ur Collection Type Urine Color Urine Clarity Urine pH Ur Specific [place] Urine Protein Urine Glucose (UA) Urine Ketones Urine Blood Urine Nitrite Urine Bilirubin Urine Urobilinogen (Auto) Ur Leukocyte Esterase Urine RBC Urine WBC Ur Squamous Epith Cells Urine Bacteria Ur Culture Indicated? Quality Measures Quality Measures none Assessment & Plan Assessment Current Active Medications: Generic Name Dose Route Start Last Admin Trade Name Freq PRN Reason Stop Dose Admin Acetaminophen 650 mg 09/04/24 01:06 Acetaminophen 325 Mg Tablet PO 10/04/24 01:05 Q6HR PRN Pain (1-3) and Fever >100.4 Albuterol/Ipratropium 3 ml 09/03/24 21:00 Albuterol/Ipratropium (Duoneb) Rt Aniya 3 Ml Nebu INH 10/04/24 00:59 Q6HRRT PRN SOB/Wheeze Heparin Sodium (Porcine) 5,000 unit 09/04/24 06:00 09/04/24 06:23 Heparin Sod Inj 5000 Unit/Ml Vial SC 09/18/24 05:59 5,000 unit Q12HR ALON Administration Levothyroxine Sodium 100 mcg 09/04/24 06:00 09/04/24 06:19 Levothyroxine Sodium 100 Mcg Tablet PO 10/04/24 05:59 Not Given ACBR ALON Methylprednisolone Sodium Succinate 40 mg 09/03/24 21:00 09/04/24 08:58 Methylprednisolone Sod Succ 40 Mg Vial IVP 09/10/24 20:59 40 mg BID ALON Administration Ondansetron HCl 4 mg 09/03/24 20:54 Ondansetron Inj 2 Mg/Ml Inj 2 Ml IV 10/03/24 20:53 Q6H PRN NAUSEA OR VOMITING Protocol Pantoprazole Sodium 40 mg 09/04/24 09:00 09/04/24 08:57 Pantoprazole Inj 40 Mg Vial IVP 10/04/24 08:59 40 mg QDAY ALON Administration Plan Ms. Jay is a 59-year-old female with past medical history of Crohn's disease, diagnosed in 2007 status post colostomy, hypothyroidism, GERD and asthma who presented to [facility] emergency department on 09/03/2024 with a chief complaint of abdominal pain. Patient admitted to hospital for Crohn disease flare. 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 Currently due for her Q8 weekly dose of Remicade. CT abdomen pelvis shows gastritis pattern, multiple hernia defects, significant colitis pattern involving rectosigmoid colon as well as proctitis pattern. CRP 3.3, ESR 10. Crohn's disease activity index 272 points Plan: ? Keep n.p.o. - Pending fecal calprotectin, C. difficile, Giardia, stool culture and stool WBC - Avoid NSAIDs/opiates/antidiarrheals - Colostomy care - D2 methylprednisolone 40 mg IV twice daily started on [09/03? per GI recommendations - Gastroenterology, Dr. Worthington consulted and closely following the case. Appreciate recommendations GERD Patient on Protonix 40 mg daily at home CT scan does show gastritis Plan : - Continue Protonix 40 IV daily Hypothyroidism Resume home dose levothyroxine 100 mcg p.o. 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 Family history of Crohn's disease and Sweet syndrome Patient does not have any signs or history of erythematous plaques or papules. However she wishes to be tested for Sweet syndrome. Plan: ? For outpatient testing for Sweet syndrome. Health maintenance: Disposition: IV steroids. Pending GI consult Diet: N.p.o. Ice chips Lines: pIVs GI Prophylaxis: Pantoprazole IV Thrombo Prophylaxis: Heparin Code status: FULL CODE Plan of care discussed with Attending Dr. Lozano and PGY 2 Dr. Moni Leary MD PGY 1 Disclaimer: This note was dictated by speech recognition. Minor errors in warp knitter helper may be present due to voice recognition software. Attending Provider Attestation/Addendum I have examined the patient, reviewed labs and imaging findings, discussed the case with the resident(s), and reviewed entered orders. I agree with the plan of care as outlined in this note, with these additional summaries/recommendations: Patient seen at bedside. Patient endorsing generalized joint pain and abdominal pain. She does report she occasionally sees blood in her stool. Patient admitted for IBD flare. Continue steroids. Gastroenterology consulted, recommendations appreciated. Patient has Colostomy. Patient has had minimal output in colostomy today and we will cancel C. difficile. Working with hospital staff to see if we can arrange inpatient Remicade infusion. Continue Protonix for history of GERD and levothyroxine for hypothyroidism. Patient will remain n.p.o. for now in case colonoscopy is required. We will start diet when able. Repeat hematology and chemistry panel in AM. Please see residents note for additional details and management. Dr. Blake MD
--- NOTE | 2024-09-04 10:44 | PC.SS ---
SS met with patient regarding her d/c plan. Pt is alert/oriented. Pt was admitted for IBS Flare Up. Pt confirmed demographic and contact information is correct on facesheet. Pt resides with and 2 sons. Pt ambulates independently without assistance or DME. Pt is ok with all ADLs. Patient?s pharmacy of choice is [facility] on [address] in [place]. Pt named her son, Jorge Cali medical decision maker if she is unable. Patient?s choice is to return home upon d/c. Pt states she is not diabetic and is not on dialysis. Pt state she followed up with PCP on . D/C plan: Return home Next of Kin: Viraj Patel, son, phone# [phone] PCP: Dr. Jorge Mccormick Address: Correct on facesheet
[2024-09-04] MEDS: SODIUM CHLORIDE 0.9% 1000 ML 1,000 ML 100 ML IV (12:48)
[2024-09-04] MEDS: ACETAMINOPHEN 325 MG TABLET 650 MG PO ×2 (13:22→20:36)
--- NOTE | 2024-09-04 19:51 | PD.IMPROG ---
Documentation for date of: 09/04/24 Subjective Subjective Interval history: Patient evaluated Feeling better with IV Solu-Medrol Will give the dose of Inflectra tomorrow Exam Vital Signs Temp Pulse Resp BP Pulse Ox O2 Del Method 97.6 F 67 18 135/79 H 98 Room Air 09/04/24 15:52 09/04/24 15:52 09/04/24 15:52 09/04/24 15:52 09/04/24 15:52 09/04/24 15:52 Objective Labs 09/04/24 04:49 09/04/24 04:49 Labs: Laboratory Results - last 24 hr 09/03/24 09/04/24 21:23 04:49 WBC 11.3 H RBC 4.18 Hgb 13.2 Hct 39.7 MCV 95 MCH 31.6 MCHC 33.2 RDW Std Deviation 45.9 Plt Count 303 D Neut % (Auto) 88 H Lymph % (Auto) 10 [place] % (Auto) 2 Eos % (Auto) 0 Baso % (Auto) 0 Neut # (Auto) 9.9 H Lymph # (Auto) 1.1 [place] # (Auto) 0.2 Eos # (Auto) 0.0 Baso # (Auto) 0.0 Immature Gran # (Auto) 0.05 H Absolute Nucleated RBC 0.00 Immature Gran % 0 Nucleated RBC % 0 PT 11.2 INR 1.0 Sodium 140 Potassium 4.4 Chloride 105 Carbon Dioxide 24.9 Anion Gap 10 BUN 23 Creatinine 0.8 Estim Creat Clear Calc 89.3 eGFR > 60 BUN/Creatinine Ratio 29 H Glucose 153 H D Calculated Osmolality 286 Calcium 8.7 Corrected Calcium 8.7 Phosphorus 3.1 Magnesium 2.0 Total Bilirubin 0.5 AST 11 ALT 12 Alkaline Phosphatase 108 Troponin I < 0.002 Total Protein 6.8 Albumin 4.1 Globulin 2.7 Albumin/Globulin Ratio 1.5 Triglycerides 99 Cholesterol 173 LDL Cholesterol, Calc 110 HDL Cholesterol 43 Cholesterol/HDL Ratio 4.0 TSH 1.46 Impressions Impression: Acute exacerbation of the underlying inflammatory bowel disease Inflectra probably on Friday after authorization by the case management 5 mg/kg body weight Assessment & Plan A&P Narrative Acute exacerbation of the underlying inflammatory bowel disease Complete stool panel to rule out any other infectious causes including C. difficile IV Solu-Medrol 40 mg IV every 12 Inflectra 5 mg/kg body weight she weighs 228 pounds will calculate the dose and she should receive the dose prior to discharge Clear liquid diet Will follow the patient Other medical problems include Status post colostomy Hypothyroidism Multiple ventral hernias Thank you once again for the opportunity to participate in the care of this patient Time Spent With Patient Time: Total time spent is greater than 50% in coordination of care (as documented) at patient's floor/unit and/or counseling patient:
[2024-09-05] VITALS (7 sets, daily range): BP systolic 113–135; BP diastolic 61–84; PULSE 51–68; RESP 15–98; TEMP 36.1–36.4; O2SAT 93–98
[2024-09-05] MEDS: HYDROcodone/APAP 5/325 TABLET 1 TAB PO (00:53)
[2024-09-05 02:11] LABS: Stool for WBCs Negative (Negative)
[2024-09-05] MEDS: LEVOTHYROXINE SODIUM 100 MCG TABLET PO (05:30)
[2024-09-05 05:39] LABS: Basophils % (Auto) 0 % (0-2.5); Eosinophils % (Auto) 0 % (0-10); Hematocrit 39.7 % (36.0-46.0); Hemoglobin 13.5 g/dL (12.0-16.0); Immature Granulocytes % (Auto) 1 % (0-0); Immature Granulocytes Auto 0.09 Thou/mm3 (0.00-0.00); Lymphocytes # (Auto) 1.4 Thou/mm3 (1.0-4.8); Lymphocytes % (Auto) 10 % (10-50); Mean Corpuscular Hemoglobin 31.8 pg (25.0-35.0); Mean Corpuscular Volume 94 fL (80-100); Monocytes # (Auto) 0.6 Thou/mm3 (0.0-0.8); Monocytes % (Auto) 4 % (0-12); Neutrophils # (Auto) 11.6 Thou/mm3 (1.8-7.7); Neutrophils % (Auto) 85 % (37-80); Nucleated Red Blood Cell % 0 /100 WBC (0); Platelet Count 337 Thou/mm3 (140-440); RDW Standard Deviation 43.8 fL (36.4-46.3); Red Blood Count 4.24 Miln/mm3 (4.00-5.20); White Blood Count 13.7 Thou/mm3 (3.6-11.0)
[2024-09-05 05:47] LABS: Prothrombin Time 11.2 Seconds (9.0-12.2)
[2024-09-05 06:10] LABS: Alanine Aminotransferase 12 U/L (10-49); Albumin, Serum 3.9 gm/dL (3.4-4.8); Albumin/Globulin Ratio 1.5 (1.2-2.2); Alkaline Phosphatase 105 U/L (46-116); Anion Gap 9 (7-16); Aspartate Amino Transferase 10 U/L (0-34); BUN/Creatinine Ratio 31 Ratio (12-20); Bilirubin,Total 0.5 mg/dL (0.3-1.2); Blood Urea Nitrogen 25 mg/dL (9-23); Calcium 8.8 mg/dL (8.3-10.6); Calcium (Corrected) 8.9 mg/dL (8.5-10.1); Chloride 106 mMol/L (98-107); Creatinine (Component) 0.8 mg/dL (0.6-1.3); Estimated Creatinine Clearance 89.3 mL/min (>60); Globulin 2.6 gm/dL (2.3-3.5); Glucose 152 mg/dL (74-106); Magnesium 2.2 mg/dL (1.6-2.6); Osmolality,Calculated 286 (275-295); Phosphorous 3.4 mg/dL (2.4-5.1); Potassium 4.5 mMol/L (3.4-5.1); Sodium 140 mMol/L (136-145); Total Protein 6.5 gm/dL (5.7-8.2); eGFR > 60 See Note
--- NOTE | 2024-09-05 07:52 | ESPR_ITS ---
<Statement entered by Shamika Montenegro MD - 09/06/24 16:37> Patient was seen and examined at bedside. Agree with assessment and plan at this time - Patient's plan and care discussed with my attending, Dr. Blake Montenegro MD Internal Medicine PGY-2 Documentation for date of: 09/05/24 Subjective Subjective Interval history: Patient was seen and examined at bedside this AM. No acute exents overnight. Patient tolerating diet, adequate urine output and mentation is at baseline. Patient endorses improvement of joint pain. D3 Solu-Medrol 40 Mg IV twice daily. Pending authorization for infliximab 515 Mg IV infusion. Possibly for tomorrow Stool WBC 1+. Pending calprotectin, C. difficile, culture Residential Case Manager, Dr. Worthington closely following the case. Exam Vital Signs Temp Pulse Resp BP Pulse Ox O2 Del Method 97.0 F 62 18 133/84 H 95 Room Air 09/05/24 07:25 09/05/24 07:25 09/05/24 07:25 09/05/24 07:25 09/05/24 07:25 09/05/24 07:25 Narrative Exam Constitutional Alert, oriented x 3 and comfortable HEENT Vision grossly intact. Patent nares. Trachea midline Respiratory Chest normal on inspection and clear auscultation bilaterally Cardiovascular S1 and S2 audible, RRR. No murmurs carotid bruit. No gross JVD. Abdominal Soft and mildly tender to palpation in lower quadrants. Healed midline surgical scar noted. Colostomy in left lower quadrant, bag attached, minimal output, no signs of stenosis or corrosion Genitourinary No bladder tenderness, no flank pain. Normal to palpation Musculoskeletal Extremities tone within normal limits. No LE edema. Neurological CN II - XII grossly intact. Extremity motor and sensation grossly intact. Skin Warm, dry and intact. No apparent lesions. Psychiatric Patient has good affect, is cooperative Objective Labs 09/06/24 05:21 09/06/24 05:21 Labs: Laboratory Results - last 24 hr 09/04/24 09/05/24 23:50 04:54 WBC 13.7 H RBC 4.24 Hgb 13.5 Hct 39.7 MCV 94 MCH 31.8 MCHC 34.0 RDW Std Deviation 43.8 Plt Count 337 D Neut % (Auto) 85 H Lymph % (Auto) 10 [place] % (Auto) 4 Eos % (Auto) 0 Baso % (Auto) 0 Neut # (Auto) 11.6 H Lymph # (Auto) 1.4 [place] # (Auto) 0.6 Eos # (Auto) 0.0 Baso # (Auto) 0.0 Immature Gran # (Auto) 0.09 H Absolute Nucleated RBC 0.00 Immature Gran % 1 H Nucleated RBC % 0 PT 11.2 INR 1.0 Sodium 140 Potassium 4.5 Chloride 106 Carbon Dioxide 25.0 Anion Gap 9 BUN 25 H Creatinine 0.8 Estim Creat Clear Calc 89.3 eGFR > 60 BUN/Creatinine Ratio 31 H Glucose 152 H Calculated Osmolality 286 Calcium 8.8 Corrected Calcium 8.9 Phosphorus 3.4 Magnesium 2.2 Total Bilirubin 0.5 AST 10 ALT 12 Alkaline Phosphatase 105 Total Protein 6.5 Albumin 3.9 Globulin 2.6 Albumin/Globulin Ratio 1.5 Stool for White Cells Negative Quality Measures Quality Measures none Assessment & Plan Assessment Current Active Medications: Generic Name Dose Route Start Last Admin Trade Name Freq PRN Reason Stop Dose Admin Acetaminophen 650 mg 09/04/24 01:06 09/04/24 20:36 Acetaminophen 325 Mg Tablet PO 10/04/24 01:05 650 mg Q6HR PRN Administration Pain (1-3) and Fever >100.4 Albuterol/Ipratropium 3 ml 09/03/24 21:00 Albuterol/Ipratropium (Duoneb) Rt Aniya 3 Ml Nebu INH 10/04/24 00:59 Q6HRRT PRN SOB/Wheeze Heparin Sodium (Porcine) 5,000 unit 09/04/24 06:00 09/04/24 20:35 Heparin Sod Inj 5000 Unit/Ml Vial SC 09/18/24 05:59 5,000 unit Q12HR ALON Administration Infliximab-DYYB 515 mg 09/06/24 09:00 Infliximab-Dyyb (Biosimilar) Inj 100 Mg Vial IV 09/06/24 09:01 X1 ONE Levothyroxine Sodium 100 mcg 09/04/24 06:00 09/05/24 05:30 Levothyroxine Sodium 100 Mcg Tablet PO 10/04/24 05:59 100 mcg ACBR ALON Administration Methylprednisolone Sodium Succinate 40 mg 09/03/24 21:00 09/04/24 20:35 Methylprednisolone Sod Succ 40 Mg Vial IVP 09/10/24 20:59 40 mg BID ALON Administration Ondansetron HCl 4 mg 09/03/24 20:54 Ondansetron Inj 2 Mg/Ml Inj 2 Ml IV 10/03/24 20:53 Q6H PRN NAUSEA OR VOMITING Protocol Pantoprazole Sodium 40 mg 09/04/24 09:00 09/04/24 08:57 Pantoprazole Inj 40 Mg Vial IVP 10/04/24 08:59 40 mg QDAY ALON Administration Plan Ms. Jay is a 59-year-old female with past medical history of Crohn's disease, diagnosed in 2007 status post colostomy, hypothyroidism, GERD and asthma who presented to [facility] emergency department on 09/03/2024 with a chief complaint of abdominal pain. Patient admitted to hospital for Crohn disease flare. 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 Currently due for her Q8 weekly dose of Remicade. CT abdomen pelvis shows gastritis pattern, multiple hernia defects, significant colitis pattern involving rectosigmoid colon as well as proctitis pattern. CRP 3.3, ESR 10. Crohn's disease activity index 272 points Patient endorses improvement of joint pain. D3 Solu-Medrol 40 Mg IV twice daily. Pending authorization for infliximab 515 Mg IV infusion. Possibly for tomorrow Stool WBC 1+. Pending calprotectin, C. difficile, culture Residential Case Manager, Dr. Worthington closely following the case. Plan: ? Low residue diet - Pending fecal calprotectin, C. difficile, Giardia, stool culture - Avoid NSAIDs/opiates/antidiarrheals - Colostomy care - D3 methylprednisolone 40 mg IV twice daily started on [09/03? per GI recommendations - Gastroenterology, Dr. Worthington consulted and closely following the case. Appreciate recommendations GERD Patient on Protonix 40 mg daily at home CT scan does show gastritis Plan : - Continue Protonix 40 IV daily Hypothyroidism Resume home dose levothyroxine 100 mcg p.o. 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 Was on Xarelto for 2 years and subsequently discontinued by her card assembler. Family history of Crohn's disease and Sweet syndrome Patient does not have any signs or history of erythematous plaques or papules. However she wishes to be tested for Sweet syndrome. Plan: ? For outpatient testing for Sweet syndrome. Health maintenance: Disposition: IV steroids. For infliximab infusion once authorized Diet: Low residue Lines: pIVs GI Prophylaxis: Pantoprazole IV Thrombo Prophylaxis: Heparin Code status: FULL CODE Plan of care discussed with Attending Dr. Lozano and PGY 2 Dr. Moni Leary MD PGY 1 Disclaimer: This note was dictated by speech recognition. Minor errors in coffee maker may be present due to voice recognition software. Attending Provider Attestation/Addendum I have examined the patient, reviewed labs and imaging findings, discussed the case with the resident(s), and reviewed entered orders. I agree with the plan of care as outlined in this note. Dr. Lozano
[2024-09-05] MEDS: HEPARIN SOD INJ 5000 UNIT/ML VIAL SC ×2 (08:16→21:20)
[2024-09-05] MEDS: PANTOPRAZOLE INJ 40 MG VIAL IVP (08:16)
[2024-09-05] MEDS: ACETAMINOPHEN 325 MG TABLET 650 MG PO ×2 (08:17→22:13)
--- NOTE | 2024-09-05 16:50 | PC.NURSE ---
[facility] [id number].
--- NOTE | 2024-09-05 21:30 | ESPR_ITS ---
Documentation for date of: 09/05/24 Subjective Subjective Interval history: Infliximab infusion scheduled for tomorrow Patient improving with the IV Solu-Medrol Exam Vital Signs Temp Pulse Resp BP Pulse Ox O2 Del Method 96.9 F 61 16 125/78 96 Room Air 09/05/24 20:00 09/05/24 20:00 09/05/24 20:00 09/05/24 20:00 09/05/24 20:00 09/05/24 20:00 Objective Labs 09/05/24 04:54 09/05/24 04:54 Labs: Laboratory Results - last 24 hr 09/03/24 09/04/24 09/05/24 23:50 23:50 04:54 WBC 13.7 H RBC 4.24 Hgb 13.5 Hct 39.7 MCV 94 MCH 31.8 MCHC 34.0 RDW Std Deviation 43.8 Plt Count 337 D Neut % (Auto) 85 H Lymph % (Auto) 10 [place] % (Auto) 4 Eos % (Auto) 0 Baso % (Auto) 0 Neut # (Auto) 11.6 H Lymph # (Auto) 1.4 [place] # (Auto) 0.6 Eos # (Auto) 0.0 Baso # (Auto) 0.0 Immature Gran # (Auto) 0.09 H Absolute Nucleated RBC 0.00 Immature Gran % 1 H Nucleated RBC % 0 PT 11.2 INR 1.0 Sodium 140 Potassium 4.5 Chloride 106 Carbon Dioxide 25.0 Anion Gap 9 BUN 25 H Creatinine 0.8 Estim Creat Clear Calc 89.3 eGFR > 60 BUN/Creatinine Ratio 31 H Glucose 152 H Calculated Osmolality 286 Calcium 8.8 Corrected Calcium 8.9 Phosphorus 3.4 Magnesium 2.2 Total Bilirubin 0.5 AST 10 ALT 12 Alkaline Phosphatase 105 Total Protein 6.5 Albumin 3.9 Globulin 2.6 Albumin/Globulin Ratio 1.5 Stool for White Cells Negative Stl C. diff Tox B Gene Cancelled Impressions Impression: Acute exacerbation of the underlying inflammatory bowel disease Continue current management Infliximab IV tomorrow Assessment & Plan A&P Narrative Acute exacerbation of the underlying inflammatory bowel disease Complete stool panel to rule out any other infectious causes including C. difficile IV Solu-Medrol 40 mg IV every 12 Inflectra 5 mg/kg body weight she weighs 228 pounds will calculate the dose and she should receive the dose prior to discharge Clear liquid diet Will follow the patient Other medical problems include Status post colostomy Hypothyroidism Multiple ventral hernias Thank you once again for the opportunity to participate in the care of this patient Time Spent With Patient Time: Total time spent is greater than 50% in coordination of care (as documented) at patient's floor/unit and/or counseling patient:
[2024-09-06] VITALS: BP 139/77; PULSE 53; RESP 18; TEMP 36.2; O2SAT 96
[2024-09-06 04:00] VITALS: BP 118/74; PULSE 57; RESP 16; TEMP 36.4; O2SAT 96
[2024-09-06] MEDS: LEVOTHYROXINE SODIUM 100 MCG TABLET PO (05:24)
[2024-09-06 05:53] LABS: Basophils % (Auto) 0 % (0-2.5); Eosinophils % (Auto) 0 % (0-10); Hematocrit 39.8 % (36.0-46.0); Hemoglobin 13.4 g/dL (12.0-16.0); Immature Granulocytes % (Auto) 1 % (0-0); Immature Granulocytes Auto 0.07 Thou/mm3 (0.00-0.00); Lymphocytes # (Auto) 1.4 Thou/mm3 (1.0-4.8); Lymphocytes % (Auto) 12 % (10-50); Mean Corpuscular HGB Conc 33.7 g/dl (31.0-37.0); Mean Corpuscular Hemoglobin 31.5 pg (25.0-35.0); Mean Corpuscular Volume 94 fL (80-100); Monocytes # (Auto) 0.5 Thou/mm3 (0.0-0.8); Monocytes % (Auto) 4 % (0-12); Neutrophils # (Auto) 10.1 Thou/mm3 (1.8-7.7); Neutrophils % (Auto) 84 % (37-80); Nucleated Red Blood Cell % 0 /100 WBC (0); Platelet Count 340 Thou/mm3 (140-440); Red Blood Count 4.25 Miln/mm3 (4.00-5.20)
[2024-09-06 06:11] LABS: Alanine Aminotransferase 12 U/L (10-49); Albumin, Serum 3.9 gm/dL (3.4-4.8); Albumin/Globulin Ratio 1.5 (1.2-2.2); Alkaline Phosphatase 106 U/L (46-116); Anion Gap 7 (7-16); Aspartate Amino Transferase < 10 U/L (0-34); BUN/Creatinine Ratio 31 Ratio (12-20); Bilirubin,Total 0.4 mg/dL (0.3-1.2); Blood Urea Nitrogen 25 mg/dL (9-23); Calcium 8.9 mg/dL (8.3-10.6); Carbon Dioxide 25.7 mMol/L (20.0-31.0); Chloride 105 mMol/L (98-107); Creatinine (Component) 0.8 mg/dL (0.6-1.3); Estimated Creatinine Clearance 89.3 mL/min (>60); Globulin 2.6 gm/dL (2.3-3.5); Glucose 181 mg/dL (74-106); Magnesium 2.2 mg/dL (1.6-2.6); Osmolality,Calculated 285 (275-295); Phosphorous 3.4 mg/dL (2.4-5.1); Potassium 4.8 mMol/L (3.4-5.1); Sodium 138 mMol/L (136-145); Total Protein 6.5 gm/dL (5.7-8.2); eGFR > 60 See Note
[2024-09-06 08:00] VITALS: BP 130/81; PULSE 55; RESP 18; TEMP 36.5; O2SAT 94
[2024-09-06] MEDS: DiphenhydrAMINE INJ 50 MG/ML VIAL IVP (09:36)
[2024-09-06] MEDS: PANTOPRAZOLE INJ 40 MG VIAL IVP (09:36)
[2024-09-06] MEDS: HEPARIN SOD INJ 5000 UNIT/ML VIAL SC (09:37)
--- NOTE | 2024-09-06 09:38 | PD.IMPROG ---
Documentation for date of: 09/06/24 Subjective Subjective Interval history: Patient got the dose of infliximab okay to discharge patient home on tapering doses of steroid and we will see her back in follow-up in my office next week Exam Vital Signs Temp Pulse Resp BP Pulse Ox O2 Del Method 97.7 F 55 L 18 130/81 94 L Room Air 09/06/24 08:00 09/06/24 08:00 09/06/24 08:00 09/06/24 08:00 09/06/24 08:00 09/06/24 08:00 Objective Labs 09/06/24 05:21 09/06/24 05:21 Labs: Laboratory Results - last 24 hr 09/03/24 09/06/24 23:50 05:21 WBC 12.0 H RBC 4.25 Hgb 13.4 Hct 39.8 MCV 94 MCH 31.5 MCHC 33.7 RDW Std Deviation 44.0 Plt Count 340 Neut % (Auto) 84 H Lymph % (Auto) 12 [place] % (Auto) 4 Eos % (Auto) 0 Baso % (Auto) 0 Neut # (Auto) 10.1 H Lymph # (Auto) 1.4 [place] # (Auto) 0.5 Eos # (Auto) 0.0 Baso # (Auto) 0.0 Immature Gran # (Auto) 0.07 H Absolute Nucleated RBC 0.00 Immature Gran % 1 H Nucleated RBC % 0 PT 11.0 INR 1.0 Sodium 138 Potassium 4.8 Chloride 105 Carbon Dioxide 25.7 Anion Gap 7 BUN 25 H Creatinine 0.8 Estim Creat Clear Calc 89.3 eGFR > 60 BUN/Creatinine Ratio 31 H Glucose 181 H Calculated Osmolality 285 Calcium 8.9 Corrected Calcium 9.0 Phosphorus 3.4 Magnesium 2.2 Total Bilirubin 0.4 AST < 10 ALT 12 Alkaline Phosphatase 106 Total Protein 6.5 Albumin 3.9 Globulin 2.6 Albumin/Globulin Ratio 1.5 Stl C. diff Tox B Gene Cancelled Impressions Impression: Acute exacerbation of the underlying inflammatory bowel disease doing better Plan As under HPI Assessment & Plan A&P Narrative Acute exacerbation of the underlying inflammatory bowel disease Complete stool panel to rule out any other infectious causes including C. difficile IV Solu-Medrol 40 mg IV every 12 Inflectra 5 mg/kg body weight she weighs 228 pounds will calculate the dose and she should receive the dose prior to discharge Clear liquid diet Will follow the patient Other medical problems include Status post colostomy Hypothyroidism Multiple ventral hernias Thank you once again for the opportunity to participate in the care of this patient Time Spent With Patient Time: Total time spent is greater than 50% in coordination of care (as documented) at patient's floor/unit and/or counseling patient:
[2024-09-06] MEDS: Magnesium Sulfate 1 gm Ivpb 1 GM/100 ML BAG IV (09:45)
[2024-09-06] MEDS: STERILE WATER IV (10:34)
[2024-09-06] MEDS: INFLIXIMAB DYYB IV (10:34)
[2024-09-06] MEDS: [UNRECOGNIZED DRUG - OTHER] IV (10:34)
[2024-09-06] MEDS: FILTER MICRON CONICAL IV (10:34)
[2024-09-06] MEDS: HYOSCYAMINE SULF 0.125 MG TAB.SUBL 0.25 MG PO ×2 (10:47→14:51)
[2024-09-06 10:54] VITALS: BMI 38.0
[2024-09-06 11:53] VITALS: PULSE 62; RESP 16; RESP 97; O2SAT 97
[2024-09-06 12:00] VITALS: BP 128/72; PULSE 55; RESP 16; TEMP 36.6; O2SAT 98
--- NOTE | 2024-09-06 13:01 | ESDS_ITS ---
Planned Discharge Date 09/06/24 DS: Providers Provider Date of admission: 09/03/24 20:54 Primary care physician: Jorge Mccormick Admitting Provider: Sony Cabrera MD Attending Provider on Admission: Sony Cabrera MD Consults: 09/03/24 19:03 Consult to Gastroenterology Stat Comment: Hemoglobin Consulting Provider: Tiesha Worthington 09/04/24 01:22 Referral Respiratory Therapy Routine Comment: 09/04/24 15:37 Referral Wound Care Routine Comment: Attending Provider on DC: Michael Lozano MD Discharging Provider: Leandro Leary MD DS: Diagnosis Problem List Completed Was Problem List Reviewed/Reconciled?: Yes Hospital Course Hospital Course Hospital course: Ms. Jay is a 59-year-old female with past medical history of Crohn's disease, diagnosed in 2007 status post colostomy, hypothyroidism, GERD and asthma who presented to [facility] emergency department on 09/03/2024 with a chief complaint of abdominal pain. Patient admitted to hospital for Crohn disease flare. For her Crohn's flare, patient was treated with 3 days of methylprednisone 40 Mg IV twice daily from 09/03 - 09/06. Stool studies including C. difficile, stool culture, stool for WBCs were negative. Calprotectin pending at time of discharge. After this her joint pain and abdominal cramping improved. She also received infliximab 515 Mg IV infusion on 09/06 prior to discharge. All patient's labs are now returning to baseline. Patient is a clinically stable and fit for discharge to home. Discharge diagnoses: 1. Crohn's disease flare?resolving 2. Colostomy secondary to complicated sigmoid diverticulitis 3. GERD 4. Hypothyroidism 5. History of DVT and PE [2019] s/p IVC filter Discharge plan: ? You have been started on a steroid taper. Take 3 tablets twice a day for 7 days, then 2 tablets twice a day for 7 days, then 1 tablet twice a day for 7 days. Then stop. ? You have been started on a medication hyoscyamine for abdominal cramping. You can take 2 tablets every 4 hourly as needed for abdominal cramping. ? Continue the rest of your home medication as before. ? Your infliximab infusions have been scheduled for every 6 weeks now instead of every 8. ? The information for the cancer treatment center is listed below. If you wish to switch your infusions to them, you can call the number listed and inquire further. ? Follow-up with gastroenterology, Dr. Worthington within 2-3 weeks of discharge. - Follow up with your primary care physician within 1 week of discharge. If you do not have a primary care physician, please follow up with the [facility] Residents clinic ([phone]) ? If you experience any new, worsening or persistent symptoms either call your primary doctor, or dial 911 or present to the emergency department. We are grateful to be able to participate in Mrs. Jay's care. We wish her the best. Plan of care discussed with Attending Dr. Blake Leary MD PGY 1 Disclaimer: This note was dictated by speech recognition. Minor errors in circulation librarian may be present due to voice recognition software. Time Spent with Patient Time attestation: Total time spent providing and/or coordinating discharge services: Time spent: Greater than 30 minutes (43) Exam Vital Signs Temp Pulse Resp BP Pulse Ox O2 Del Method 97.9 F 55 L 16 128/72 98 Room Air 09/06/24 12:09/06/24 12:09/06/24 12:09/06/24 12:09/06/24 12:09/06/24 12:00 Narrative Exam Constitutional Alert, oriented x 3 and comfortable HEENT Vision grossly intact. Patent nares. Trachea midline Respiratory Chest normal on inspection and clear auscultation bilaterally Cardiovascular S1 and S2 audible, RRR. No murmurs carotid bruit. No gross JVD. Abdominal Soft and mildly tender to palpation in lower quadrants. Healed midline surgical scar noted. Colostomy in left lower quadrant, bag attached, minimal output, no signs of stenosis or corrosion Genitourinary No bladder tenderness, no flank pain. Normal to palpation Musculoskeletal Extremities tone within normal limits. No LE edema. Neurological CN II - XII grossly intact. Extremity motor and sensation grossly intact. Skin Warm, dry and intact. No apparent lesions. Psychiatric Patient has good affect, is cooperative Discharge Plan Plan Patient Disposition: HOME (Self Care) Patient condition on transfer: Stable and Benefits outweigh risks Care Plan Goals: ? You have been started on a steroid taper. Take 3 tablets twice a day for 7 days, then 2 tablets twice a day for 7 days, then 1 tablet twice a day for 7 days. Then stop. ? You have been started on a medication hyoscyamine for abdominal cramping. You can take 2 tablets every 4 hourly as needed for abdominal cramping. ? Continue the rest of your home medication as before. ? Your infliximab infusions have been scheduled for every 6 weeks now instead of every 8. ? The information for the cancer treatment center is listed below. If you wish to switch your infusions to them, you can call the number listed and inquire further. ? Follow-up with gastroenterology, Dr. Worthington within 2-3 weeks of discharge. - Follow up with your primary care physician within 1 week of discharge. If you do not have a primary care physician, please follow up with the [facility] Residents clinic ([phone]) ? If you experience any new, worsening or persistent symptoms either call your primary doctor, or dial 911 or present to the emergency department. Prescriptions/Referrals Prescriptions/Med Rec: New hyoscyamine sulfate 0.125 mg Tablet, Sublingual 0.25 mg PO Q4HR PRN (Reason: Abdominal cramping) 7 Days Qty: 42 0RF prednisone 5 mg tablet 5 mg PO TAPER Qty: 84 0RF Taper: Prednisone Taper 15 mg TWICE A DAY for 7 Days and 0 Hour 10 mg TWICE A DAY for 7 Days and 0 Hour 5 mg TWICE A DAY for 7 Days and 0 Hour Rx Instructions: - Take 3 tablets 2 times a day for 7 days. Then 2 tablets twice a day for 7 days. Then 1 tablet twice a day for 7 days. Then stop. Continued levothyroxine 100 mcg tablet 100 mcg PO QDAY Patient Comments: TAKE 1 TABLET BY MOUTH EVERY DAY IN THE MORNING ON EMPTY STOMACH pantoprazole 40 mg tablet,delayed release (DR/EC) 40 mg PO QDAY Patient Comments: TAKE 1 TABLET BY MOUTH 1/2 TO 1 HOUR BEFORE MORNING MEAL ORALLY ONCE A DAY 90 DAYS albuterol sulfate 90 mcg/actuation HFA aerosol inhaler 2 puff INHALATION Q12HR PRN (Reason: shortness of breath or wheezing) Patient Comments: INHALE 2 PUFFS BY MOUTH EVERY 6 HOURS NEEDED FOR 25 DAYS Referrals: [facility] Treatment [facility] - [facility] [Outside] Jorge Mccormick [Primary Care Provider] - Tiesha Worthington MD [Physician] - Patient/Caregiver Discharge Instructions Meds to Beds: No Discharge Activity: activity as tolerated Education Materials: Infliximab injection, Anatomy of the Digestive System, Crohn Disease Lifestyle Manage Print Language: Dutch Stand Alone Forms: Billie Award Info., Patient Portal Info Letter Discharge Order Discharge Orders: Discharge (Routine); Ordered 09/06/24 Ordered By: Leandro Leary Quality Discharge Quality Measures VTE prophylaxis MD Attestestation MD Attestation I have examined the patient, reviewed labs and imaging findings, discussed the case with the resident(s), and reviewed entered orders. I agree with the plan of care as outlined in this note. Time Spent: [address] Blake MD
[2024-09-06 15:00] VITALS: BP 109/76; PULSE 66; RESP 18; TEMP 36.6; O2SAT 96
[2024-09-09 06:30] LABS: Giardia Result NOT DETECTED
[2024-09-14 06:56] LABS: Calprotectin, Stool* 24 mcg/g
== END 2024-09-06 15:09 | disposition home or self-care (01) | DRG 386 ==
LOC: SERX 20:35 → SERHOLD 21:56 → S3SX 09-04 00:38
PROVIDERS: Nurse Practitioner Primary Care; Specialist; Admitting Provider Student in an Organized Health Care Education/Training Program; Emergency Provider Emergency Medicine; PCP Family Medicine; Visit Provider Student in an Organized Health Care Education/Training Program
DX: K50.111 Crohn's disease of large intestine with rectal bleeding (principal); K57.32 Diverticulitis of large intestine without perforation or abscess without bleeding; E03.9 Hypothyroidism, unspecified; K21.9 Gastro-esophageal reflux disease without esophagitis; J45.909 Unspecified asthma, uncomplicated; K43.9 Ventral hernia without obstruction or gangrene; K29.70 Gastritis, unspecified, without bleeding; Z93.3 Colostomy status; Z86.711 Personal history of pulmonary embolism; Z86.718 Personal history of other venous thrombosis and embolism; K62.89 Other specified diseases of anus and rectum; Z79.899 Other long term (current) drug therapy; Z90.710 Acquired absence of both cervix and uterus; Z95.828 Presence of other vascular implants and grafts; Z88.5 Allergy status to narcotic agent; Z88.2 Allergy status to sulfonamides
CPT/HCPCS: 36415; 74176; 80053; 80061; 81001; 83690; 83735; 83993; 84100; 84443; 84484; 85025; 85610; 85652; 86140; 87015; 87045; 87046; 87205; 87329; 87493; 87899; 93005; 94664; 96374; 99285; A4216; J1200; J1644; J2470; J2919; J3475; J7030; J7050; Q5103; A9270